=== PATIENT | male | born 1960 | race Caucasian/White ===

== ENCOUNTER 2023-04-11 18:39 | Observation (INO) | payer OTHER, MEDICAID ==
[2023-04-11] MEDS ORDERED: Potassium Bicarbonate/Cit Ac 20 MEQ Effervescent Tab PO ONE (18:47)
[2023-04-11] MEDS ORDERED: NS + KCl 20mEq/L 1,000 ML IV SCH (19:00)
[2023-04-11] MEDS: Potassium Chloride Riders 10 MEQ in Premix Bag 1 BAG IV SCH ×4 (20:32→23:49)
[2023-04-11] MEDS ORDERED: Sodium Chloride 0.9% 1,000 ML IV SCH (20:45)
[2023-04-11] MEDS ORDERED: Sodium Chloride 0.9% 100 ML IV SCH (21:30)
[2023-04-12] MEDS: Potassium Chloride Riders 10 MEQ in Premix Bag 1 BAG IV SCH ×7 (00:51→21:22)
[2023-04-12 01:24] LABS: CALCIUM 8.4 mg/dL (8.5-10.1); CARBON DIOXIDE,CO2 34.4 mmol/L (21.0-32.0); CREATININE 0.78 mg/dL (0.51-1.17); EST CRCL DRUG DOSING (CG) 98.19 mL/min
[2023-04-12 01:26] LABS: POTASSIUM,K 2.4 mmol/L (3.5-5.1)
[2023-04-12 07:43] LABS: CALCIUM 8.6 mg/dL (8.5-10.1); CARBON DIOXIDE,CO2 35.2 mmol/L (21.0-32.0); CREATININE 0.81 mg/dL (0.51-1.17); EST CRCL DRUG DOSING (CG) 94.56 mL/min
[2023-04-12 07:53] LABS: ANION GAP 7.5 meq/L (7-15); POTASSIUM,K 2.7 mmol/L (3.5-5.1)
[2023-04-12] MEDS ORDERED: Sodium Chloride 0.9% 10 ML Syringe FLUSH PRN (08:23)
[2023-04-12] MEDS ORDERED: Furosemide 40 MG Tab PO ONE (09:17)
[2023-04-12] MEDS: Potassium Bicarbonate/Cit Ac 20 MEQ Effervescent Tab PO SCH ×3 (10:18→14:19)
[2023-04-12 15:40] LABS: APPEARANCE,URINE CLEAR; BILIRUBIN,URINE NEGATIVE (NEGATIVE); COLOR,URINE YELLOW; GLUCOSE,URINE NEGATIVE (NEGATIVE); KETONES,URINE NEGATIVE (NEGATIVE); LEUKOCYTE ESTERASE,URINE SMALL (NEGATIVE); NITRITE,URINE NEGATIVE (NEGATIVE); OCCULT BLOOD,URINE NEGATIVE (NEGATIVE); PROTEIN,URINE NEGATIVE (NEGATIVE)
[2023-04-12 15:57] LABS: BACTERIA,URINE MODERATE /HPF (NONE TO FEW); EPITHELIAL CELLS,URINE FEW /LPF; RBC,URINE NOT SEEN /HPF
[2023-04-12] MEDS ORDERED: Potassium Bicarbonate/Cit Ac 20 MEQ Effervescent Tab PO ONE ×4 (16:30→22:30)
[2023-04-12] MEDS: Lactulose Soln 10 GM/15 ML 30 ML UD Cup PO SCH (17:25)
[2023-04-12] MEDS: Polyethylene Glycol 3350 Powder 17 GM Packet PO SCH (17:25)
[2023-04-12] MEDS: Sennosides/Docusate Sodium 50-8.6 MG Tab PO SCH (17:26)
[2023-04-12 17:29] LABS: CALCIUM 9.1 mg/dL (8.5-10.1); CARBON DIOXIDE,CO2 34.1 mmol/L (21.0-32.0); CREATININE 0.88 mg/dL (0.51-1.17); EST CRCL DRUG DOSING (CG) 87.04 mL/min
[2023-04-12 17:33] LABS: ANION GAP 9.9 meq/L (7-15)
[2023-04-12 17:40] LABS: BASOPHILS ABSOLUTE AUTO 0.02 K/uL (0.00-0.20); BASOPHILS PERCENT AUTO 0.2 % (0.0-2.0); EOSINOPHILS ABSOLUTE AUTO 0.11 K/uL (0.00-0.50); HEMATOCRIT 40.5 % (39.0-49.0); HEMOGLOBIN 13.5 g/dL (13.1-16.8); LYMPHOCYTES PERCENT AUTO 15.6 % (10.0-50.0); MEAN CORPUSCULAR HEMOGLOBIN 29.9 pg (28.2-33.3); MEAN CORPUSCULAR HGB CONC 33.3 g/dL (31.7-36.0); MEAN CORPUSCULAR VOLUME 89.6 fL (84.0-98.0); MONOCYTES ABSOLUTE AUTO 1.04 K/uL (0.00-1.00); NEUTROPHILS ABSOLUTE AUTO 8.58 K/uL (1.40-7.00); NEUTROPHILS PERCENT AUTO 74.2 % (45.0-80.0); PLATELET COUNT,PLT 317 K/uL (150-350); RED BLOOD CELL COUNT 4.52 M/uL (4.33-5.41); RED CELL DISTRIBUTION WIDTH 12.9 % (11.2-14.1); WHITE BLOOD CELL COUNT,WBC 11.6 K/uL (4.0-10.2)
[2023-04-12] MEDS ORDERED: Bisacodyl 5 MG Tab PO SCH (20:00)
[2023-04-12] MEDS ORDERED: traZODone 50 MG Tab PO SCH (20:00)
[2023-04-13] MEDS: Lactulose Soln 10 GM/15 ML 30 ML UD Cup PO SCH (07:47)
[2023-04-13] MEDS: Polyethylene Glycol 3350 Powder 17 GM Packet PO SCH (07:48)
[2023-04-13] MEDS: Sennosides/Docusate Sodium 50-8.6 MG Tab PO SCH (07:48)
[2023-04-13] MEDS ORDERED: Tamsulosin 0.4 MG Cap.ER PO SCH (08:00)
[2023-04-13 08:08] LABS: BASOPHILS ABSOLUTE AUTO 0.02 K/uL (0.00-0.20); BASOPHILS PERCENT AUTO 0.1 % (0.0-2.0); EOSINOPHILS ABSOLUTE AUTO 0.08 K/uL (0.00-0.50); EOSINOPHILS PERCENT AUTO 0.6 % (0.0-5.0); HEMATOCRIT 40.7 % (39.0-49.0); HEMOGLOBIN 13.3 g/dL (13.1-16.8); LYMPHOCYTES ABSOLUTE AUTO 1.58 K/uL (0.50-3.50); LYMPHOCYTES PERCENT AUTO 11.4 % (10.0-50.0); MEAN CORPUSCULAR HEMOGLOBIN 29.8 pg (28.2-33.3); MEAN CORPUSCULAR HGB CONC 32.7 g/dL (31.7-36.0); MEAN CORPUSCULAR VOLUME 91.1 fL (84.0-98.0); MONOCYTES ABSOLUTE AUTO 1.16 K/uL (0.00-1.00); MONOCYTES PERCENT AUTO 8.3 % (2.0-14.0); NEUTROPHILS ABSOLUTE AUTO 11.07 K/uL (1.40-7.00); NEUTROPHILS PERCENT AUTO 79.6 % (45.0-80.0); PLATELET COUNT,PLT 315 K/uL (150-350); RED BLOOD CELL COUNT 4.47 M/uL (4.33-5.41); WHITE BLOOD CELL COUNT,WBC 13.9 K/uL (4.0-10.2)
[2023-04-13 09:07] LABS: CALCIUM 8.9 mg/dL (8.5-10.1); CARBON DIOXIDE,CO2 33.2 mmol/L (21.0-32.0); CREATININE 0.9 mg/dL (0.51-1.17); EST CRCL DRUG DOSING (CG) 85.1 mL/min
[2023-04-13 09:09] LABS: ANION GAP 11.7 meq/L (7-15); POTASSIUM,K 2.9 mmol/L (3.5-5.1)
[2023-04-13] MEDS ORDERED: Potassium Chloride 20 MEQ Tab.ER PO ONE ×2 (09:12→11:54)
[2023-04-13] MEDS ORDERED: cefTRIAXone 1 GM in Sodium Chloride 0.9% 100 ML IV ONE (09:13)
[2023-04-13] MEDS ORDERED: Enoxaparin 40 MG/0.4 ML Syringe SUBCUT ONE (13:27)
[2023-04-13] MEDS ORDERED: Potassium Chloride 10 MEQ Tab.ER PO ONE (14:15)
== END 2023-04-13 15:10 ==
LOC: LL.ED 18:39 → LL.MS 19:15
PROVIDERS: ADMIT Physician Assistant; ATTEND Physician Assistant
DX: E87.6 Hypokalemia (principal); L03.116 Cellulitis of left lower limb; Z79.82 Long term (current) use of aspirin; Z79.899 Other long term (current) drug therapy; Z20.822 Contact with and (suspected) exposure to COVID-19
CPT/HCPCS: 36415; 71046; 80048; 81001; 83735; 84484; 85025; 87086; 87088; 87186; 93005; 93010; 96361; 96365; 96366; 96367; 96376; 99223; 99233; 99239; 99285-25; A9270-GY; G0378; J0696; J3480; J3490; J7030; U0002

== ENCOUNTER 2023-11-07 19:02 | Emergency (ER) | payer MEDICARE, MEDICAID ==
[2023-11-07 20:04] LABS: CORONAVIRUS COVID-19 NAA NEGATIVE (NEGATIVE); INFLUENZA A NAA NEGATIVE (NEGATIVE); INFLUENZA B NAA NEGATIVE (NEGATIVE); RESPIRATORY SYNCYTIAL VIR NAA NEGATIVE (NEGATIVE)
== END 2023-11-07 20:30 | disposition home or self-care (01) ==
LOC: LL.ED 19:02
DX: R05.1 Acute cough (principal); I11.0 Hypertensive heart disease with heart failure; I50.9 Heart failure, unspecified; E78.00 Pure hypercholesterolemia, unspecified; F17.200 Nicotine dependence, unspecified, uncomplicated; Z79.899 Other long term (current) drug therapy; Z79.82 Long term (current) use of aspirin; Z88.5 Allergy status to narcotic agent
CPT/HCPCS: 0241U; 99283; 99284

== ENCOUNTER 2024-09-02 12:28 | Emergency (ER) | payer MEDICARE, MEDICAID ==
[2024-09-02] MEDS ORDERED: Sodium Chloride 0.9% 10 ML Syringe FLUSH PRN (12:34)
[2024-09-02 12:57] LABS: PRO B-TYPE NATRIUR PEPT,BNPPRO 86 pg/mL (0-125)
[2024-09-02] MEDS: Potassium Bicarbonate/Cit Ac 20 MEQ Effervescent Tab PO ONE ×3 (13:08→15:42)
[2024-09-02] MEDS: Potassium Chloride Riders 10 MEQ in Premix Bag 1 BAG IV SCH (13:08)
[2024-09-02] MEDS: Lactated Ringers 1,000 ML IV SCH (13:08)
[2024-09-02 13:29] LABS: APPEARANCE,URINE SLIGHTLY CLOUDY; BILIRUBIN,URINE NEGATIVE (NEGATIVE); COLOR,URINE YELLOW; GLUCOSE,URINE NEGATIVE (NEGATIVE); KETONES,URINE NEGATIVE (NEGATIVE); LEUKOCYTE ESTERASE,URINE NEGATIVE (NEGATIVE); NITRITE,URINE NEGATIVE (NEGATIVE); OCCULT BLOOD,URINE NEGATIVE (NEGATIVE); PROTEIN,URINE NEGATIVE (NEGATIVE); UROBILINOGEN,URINE 0.2 E.U./dL (0.2-1.0)
== END 2024-09-02 18:45 ==
LOC: LL.ED 12:28
DX: R14.0 Abdominal distension (gaseous) (principal); E87.6 Hypokalemia; I95.9 Hypotension, unspecified; E78.00 Pure hypercholesterolemia, unspecified; Z79.899 Other long term (current) drug therapy; Z79.82 Long term (current) use of aspirin; Z88.5 Allergy status to narcotic agent; Z88.8 Allergy status to other drugs, medicaments and biological substances
CPT/HCPCS: 36415; 70450; 71046; 71250; 74176; 81003; 82947; 83735; 83880; 84132; 84484; 93005; 93010; 96365; 96366; 99284; 99285-25; A9270-GY; J3480; J7120